=== PATIENT | male | born 1975 | race Caucasian/White ===

== ENCOUNTER → 2016-05-17 | Day surgery (SDC) | payer OTHER ==
[2016-05-11 08:36] VITALS: Ht 182.9 cm; Wt 125.0 kg
[~2016-05-17] VITALS: Ht 182.9 cm; Wt 125.0 kg
[~2016-05-17] MED LIST: CYCL5TAB PO; IBUP-103 PO; IOPAMIDOL INJ 61% 15 ML VIAL ONE; LIDOCAINE HCL 1% MPF 5 ML VIAL ONE; SODIUM CHLORIDE 0.9% INJ 10 ML VIAL ONE
--- NOTE | 2016-05-17 15:20 | History & Physical Bridge - [place] ---
H&P Re-Evaluation Bridge Note: I have examined the patient, reviewed the History & Physical and in the interval since the performance of the History & Physical I have noted the following changes of clinical significance: No changes noted
[2016-05-17 15:42] VITALS: TEMP 37.3
--- NOTE | 2016-05-17 15:44 | Discharge Instructions ---
Discharge Instructions Visit Reason for Visit: Sacral & Sacrococcygeal Radiculopathy Discharge Discharge Diagnosis / Problem: right leg pain Medications Stopped Medications Name(s): Ibuprofen, last dose 05/14/16 Activity Recommendations Activity Limitations: resume your previous activity Anesthesia . Post Anesthesia Instructions: If you have had General Anesthesia or IV Sedation: * Do not drive today. * Resume driving when surgeon permits. * Do not make important decisions or sign legal documents today. * Call surgeon for: 1. Temperature elevations greater than 101 degrees F. 2. Uncontrollable pain. 3. Excessive bleeding. 4. Persistent nausea and vomiting. 5. Medication intolerance (nausea, vomiting or rash). * For nausea and vomiting use only clear liquids such as: tea, soda, bouillon until nausea subsides, then gradually increase diet as tolerated. * If you have any concerns or questions, call your surgeon's office. If physician is unavailable and it is an emergency, call 911 or go to the nearest emergency room. . Diet Recommendations Recommended Home Diet: resume previous diet Procedures Procedures Performed: LUMBAR EPIDURAL STEROID INJECTION Pending Studies Studies pending at discharge: no Medical Emergencies . Who to Call and When: Medical Emergencies: If at any time you feel your situation is an emergency, please call 911 immediately. . Non-Emergent Contact Non-Emergency issues call your: Specialist . . "Provider Documentation" section prepared by Abdoulaye Lara.
[2016-05-17 15:52] VITALS: BP 136/92; PULSE 95; O2SAT 97
--- NOTE | 2016-05-17 16:21 | OPERATIVE REPORT ---
DATE OF OPERATION: 05/17/2016 PREOPERATIVE DIAGNOSIS: L5-S1 herniated nucleus pulposus with right lower extremity radiculopathy. POSTOPERATIVE DIAGNOSIS: Same. PROCEDURE: Right paramedian L5-S1 interlaminar epidural steroid injection under fluoroscopic guidance. SURGEON: Dr. Abdoulaye Lara. INDICATIONS: The patient is a 41-year-old white male that presents today for an epidural injection. He had been last seen in December and did great following an epidural in December. He had done well up until a short period ago where he slipped on the ice. He reports that he had significant exacerbation of his pain radiating down the right leg. He presents today for an epidural injection to provide him with relief that was similar to what he received back in December. PHYSICAL EXAMINATION: Pleasant male seated comfortably. He has some pain inhibition with motion, particularly with straight leg testing of his right lower extremity. He has intact sensation but inability to fully extend his right leg without pain CONSENT: Verbal and written consent was obtained from the patient. Risks and benefits were reviewed. Risks include but are not limited to epidural abscess, epidural hematoma, allergic reaction, dural puncture. The patient wishes to proceed. PROCEDURE: The patient was taken back to the special procedures room in [facility] where he was maintained in a prone position. Back side was cleaned with Betadine x3 and a dry sterile dressing was applied. Fluoroscopy was used to identify the L5-S1 intralaminar space. Overlying skin on the right side was anesthetized with 4 mL of lidocaine 1% with a 25 gauge 1.5-inch needle. A 22 gauge 4-1/4 inch Tuohy needle was then directed down towards the interlaminar space. It was advanced under lateral fluoroscopic guidance. Loss of resistance was noted at a depth of 10 cm. Isovue 300 contrast 1 mL was injected in which demonstrated epidural uptake pattern which was confirmed with both AP and lateral views. He then underwent injection after negative aspiration of 40 mg of Depo-Medrol and 4 mL of preservative free sodium chloride. Injection was well tolerated. DISPOSITION: 1. The patient was taken out of the discharge recovery area where he will be discharged home once discharge criteria have been met. 2. Follow up in the [facility] office in 2-4 weeks. I attest to the content of the Intraoperative Record and any orders documented therein. Any exceptio ns are noted below.
== END | disposition home or self-care (01) ==
LOC: X.SURG 14:23
PROVIDERS: ATTEND Physical Medicine & Rehabilitation
DX: M51.17 Intervertebral disc disorders with radiculopathy, lumbosacral region (principal)